=== PATIENT | female | born 1970 | race Caucasian/White ===

== ENCOUNTER 2018-10-08 19:25 | Inpatient (IN) ==
[2018-10-08] MEDS ORDERED: ALUM/MAG/SIMETH/LIDO VISC 1:1 30 ML BOTTLE PO STA (19:46)
[2018-10-08] MEDS ORDERED: NITROGLYCERIN 2% OINT 1 INCH/GM PACK TOP STA (19:46)
[2018-10-08] MEDS ORDERED: ASPIRIN 325 MG TABLET PO STA (19:46)
[2018-10-08] MEDS ORDERED: PANTOPRAZOLE 40 MG VIAL IV STA (19:46)
[2018-10-08] MEDS ORDERED: KETOROLAC 30 MG/1 ML VIAL IV STA (19:46)
[2018-10-08] MEDS ORDERED: ONDANSETRON 4 MG/2 ML VIAL IV STA (19:46)
[2018-10-08] MEDS ORDERED: MORPHINE 4 MG/1 ML VIAL IV STA (19:46)
[2018-10-08 20:03] LABS: Basophils % 0.7 % (0.0-0.8); Eosinophils # 0.2 10*3/uL (0.0-0.87); Eosinophils % 3.9 % (0.00-10.9); Hematocrit 38.2 VOL% (35.7-47.0); Hemoglobin 12.1 GM/DL (12.0-16.0); Immature Granulocytes % 0.3 %; Immature Granulocytes Absolute 0.02 #; Lymphocytes # 2.8 10*3/uL (1.4-4.0); Mean Corpuscular HGB Conc 31.7 GM/DL (32-36); Mean Corpuscular Volume 90.3 FL (87-102); Mean Platelet Volume 9.7 FL (9.6-12.0); Monocytes % 9.2 % (1.7-12.7); Neutrophils % 37.9 % (38.7-73.9); Platelet Count 258 T/CUMM (130-400); Red Blood Count 4.23 MC/CUMM (3.8-5.5); Red Cell Distribution Width 13.6 % (9.3-17.3); White Blood Count 5.9 T/CUMM (4-12)
[2018-10-08 20:14] LABS: INR 0.9; PT Patient Result 9.9 SECS
[2018-10-08 20:19] LABS: Alanine Aminotransferase 39 U/L (13-56); Albumin 3.2 G/DL (3.4-5.0); Alkaline Phosphatase 71 U/L (45-117); Aspartate Amino Transferase 28 U/L (0-37); Bilirubin,Total < 0.39 MG/DL (0.2-1.0); Blood Urea Nitrogen 19 MG/DL (7-18); Calcium 8.1 MG/DL (8.5-10.1); Glucose 126 MG/DL (74-106); Osmolality,Calculated 286.1 MOS/KG (273-304); Total Protein 6.8 G/DL (6.4-8.3)
[2018-10-08 20:28] LABS: Eosinophils 5 % (0-10); Lymphocytes 54 % (20-55); Platelet Estimate Normal; Segmented Neutrophils 38 % (50-85); Total Cells Counted 100
[2018-10-08] MEDS ORDERED: ENOXAPARIN 100 MG/ML SYRINGE SUBCUT STA (22:00)
[2018-10-08] MEDS ORDERED: ENOXAPARIN 120 MG/0.8 ML SYRINGE SUBCUT ONE (22:03)
[2018-10-08] MEDS ORDERED: MAGNESIUM SULF RIDER 2 GM in PREMIX 1 EACH IV PRN (23:27)
[2018-10-08] MEDS ORDERED: MORPHINE 4 MG/1 ML VIAL IV PRN (23:27)
[2018-10-08] MEDS ORDERED: MAGNESIUM SULF RIDER 4 GM in PREMIX 1 EACH IV PRN (23:27)
[2018-10-08] MEDS ORDERED: ONDANSETRON 4 MG/2 ML VIAL IV PRN (23:27)
[2018-10-08] MEDS ORDERED: POTASSIUM CHLORIDE 20 MEQ TABLET PO PRN (23:27)
[2018-10-09] MEDS: NITROGLYCERIN 2% OINT 1 INCH/GM PACK TOP SCH ×3 (00:30→14:42)
[2018-10-09 04:54] LABS: Basophils % 0.7 % (0.0-0.8); Eosinophils # 0.2 10*3/uL (0.0-0.87); Eosinophils % 2.9 % (0.00-10.9); Hematocrit 35.4 VOL% (35.7-47.0); Hemoglobin 11.1 GM/DL (12.0-16.0); Immature Granulocytes % 0.2 %; Immature Granulocytes Absolute 0.01 #; Lymphocytes # 3.4 10*3/uL (1.4-4.0); Lymphocytes % 57.7 % (21.3-54.2); Mean Corpuscular HGB Conc 31.4 GM/DL (32-36); Mean Corpuscular Volume 90.5 FL (87-102); Mean Platelet Volume 10.1 FL (9.6-12.0); Monocytes % 8.5 % (1.7-12.7); Platelet Count 255 T/CUMM (130-400); Red Blood Count 3.91 MC/CUMM (3.8-5.5); Red Cell Distribution Width 13.6 % (9.3-17.3); White Blood Count 5.9 T/CUMM (4-12)
[2018-10-09 05:36] LABS: Band Neutrophils 3 % (0-10); Eosinophils 2 % (0-10); Lymphocytes 53 % (20-55); Segmented Neutrophils 27 % (50-85); Total Cells Counted 100
[2018-10-09 05:37] LABS: Platelet Estimate Normal
[2018-10-09 05:40] LABS: Alanine Aminotransferase 34 U/L (13-56); Albumin 2.9 G/DL (3.4-5.0); Alkaline Phosphatase 63 U/L (45-117); Aspartate Amino Transferase 25 U/L (0-37); Bilirubin,Total < 0.39 MG/DL (0.2-1.0); Blood Urea Nitrogen 18 MG/DL (7-18); Calcium 8.4 MG/DL (8.5-10.1); Glucose 106 MG/DL (74-106); HDL Cholesterol 25 MG/DL (40-60); Osmolality,Calculated 284.1 MOS/KG (273-304); Total Protein 6.1 G/DL (6.4-8.3); Triglycerides 128 MG/DL (2-150); VLDL CHOLESTEROL 25.6 MG/DL
[2018-10-09] MEDS: SODIUM CHLORIDE 0.9% 1,000 ML IV SCH ×2 (06:15→23:30)
[2018-10-09] MEDS ORDERED: Melatonin 1 MG PO PRN (07:22)
[2018-10-09] MEDS ORDERED: ACETAMINOPHEN 325 MG TABLET PO PRN (07:42)
[2018-10-09] MEDS ORDERED: ENOXAPARIN 100 MG/ML SYRINGE SUBCUT ONE (07:52)
[2018-10-09] MEDS ORDERED: tiZANidine 4 MG TABLET PO PRN (08:00)
[2018-10-09] MEDS ORDERED: POTASSIUM CHLORIDE RIDER 10 MEQ in PREMIX 1 EACH IV PRN (08:41)
[2018-10-09] MEDS ORDERED: diphenhydrAMINE CAP 25 MG CAPSULE PO ONE (08:41)
[2018-10-09] MEDS ORDERED: DIAZEPAM 5 MG TABLET PO ONE (08:41)
[2018-10-09] MEDS: METOPROLOL TARTRATE 25 MG TABLET PO SCH ×2 (08:48→08:53)
[2018-10-09] MEDS: ESCITALOPRAM 10 MG TABLET PO SCH (08:48)
[2018-10-09] MEDS: ASPIRIN 325 MG TABLET PO SCH (08:49)
[2018-10-09] MEDS: LYSINE 500 MG TABLET PO SCH (08:49)
[2018-10-09] MEDS: CHOLECALCIFEROL 1,000 UNIT TABLET PO SCH (08:49)
[2018-10-09] MEDS ORDERED: NON-FORMULARY MEDICATION (Omeprazole 20 MG) PO SCH (09:00)
[2018-10-09] MEDS ORDERED: PANTOPRAZOLE 40 MG TABLET PO SCH (09:00)
[2018-10-09] MEDS ORDERED: SODIUM CHLORIDE 0.9% 1,000 ML IV SCH (09:00)
[2018-10-09] MEDS ORDERED: ENOXAPARIN 120 MG/0.8 ML SYRINGE SUBCUT SCH (09:00)
[2018-10-09] MEDS ORDERED: LIDOCAINE 1% 20 ML VIAL ONE (14:03)
[2018-10-09] MEDS ORDERED: MIDAZOLAM 2 MG/2 ML VIAL ONE (14:06)
[2018-10-09] MEDS ORDERED: fentaNYL 100 MCG/2 ML VIAL ONE (14:06)
[2018-10-09] MEDS: GABAPENTIN 100 MG CAPSULE PO SCH ×2 (16:02→21:38)
[2018-10-09] MEDS: ACETAMINOPHEN 325 MG TABLET PO SCH ×2 (16:02→21:37)
[2018-10-09] MEDS: FUROSEMIDE 20 MG TABLET PO SCH (16:02)
[2018-10-09] MEDS ORDERED: DOCUSATE SODIUM 100 MG/10 ML UDCUP PO SCH (21:00)
[2018-10-09] MEDS ORDERED: ROSUVASTATIN 10 MG TABLET PO SCH (21:00)
[2018-10-09] MEDS: PANTOPRAZOLE 40 MG TABLET PO SCH (21:38)
[2018-10-09] MEDS: HYOSCYAMINE 0.125 MG TABLET SL SCH ×2 (21:38→21:42)
[2018-10-10 06:24] LABS: Basophils # 0.1 10*3/uL (0.0-0.2); Eosinophils # 0.1 10*3/uL (0.0-0.87); Eosinophils % 1.3 % (0.00-10.9); Hematocrit 37.2 VOL% (35.7-47.0); Hemoglobin 11.5 GM/DL (12.0-16.0); Immature Granulocytes % 0.2 %; Immature Granulocytes Absolute 0.01 #; Lymphocytes # 2.6 10*3/uL (1.4-4.0); Lymphocytes % 48.9 % (21.3-54.2); Mean Corpuscular HGB Conc 30.9 GM/DL (32-36); Mean Corpuscular Volume 91.9 FL (87-102); Mean Platelet Volume 9.9 FL (9.6-12.0); Neutrophils % 39.6 % (38.7-73.9); Platelet Count 233 T/CUMM (130-400); Red Blood Count 4.05 MC/CUMM (3.8-5.5); Red Cell Distribution Width 13.8 % (9.3-17.3); White Blood Count 5.2 T/CUMM (4-12)
[2018-10-10 06:57] LABS: Calcium 8.4 MG/DL (8.5-10.1); Osmolality,Calculated 289.7 MOS/KG (273-304)
[2018-10-10 08:06] VITALS: BP 112/73
[2018-10-10] MEDS: LYSINE 500 MG TABLET PO SCH (08:51)
[2018-10-10] MEDS: ASPIRIN 325 MG TABLET PO SCH (08:51)
[2018-10-10] MEDS: PANTOPRAZOLE 40 MG TABLET PO SCH (08:51)
[2018-10-10] MEDS: CHOLECALCIFEROL 1,000 UNIT TABLET PO SCH (08:52)
[2018-10-10] MEDS: METOPROLOL TARTRATE 25 MG TABLET PO SCH (08:52)
[2018-10-10] MEDS: GABAPENTIN 100 MG CAPSULE PO SCH (08:52)
[2018-10-10] MEDS: ESCITALOPRAM 10 MG TABLET PO SCH (08:52)
[2018-10-10] MEDS: FUROSEMIDE 20 MG TABLET PO SCH (08:52)
[2018-10-10] MEDS: ACETAMINOPHEN 325 MG TABLET PO SCH (08:53)
[2018-10-10] MEDS: HYOSCYAMINE 0.125 MG TABLET SL SCH (09:18)
== END 2018-10-10 11:27 | disposition home or self-care (01) | DRG 287 ==
LOC: N.ED 19:25 → N.EDINP 22:06 → N.TELEN 22:52
PROVIDERS: ADMIT Internal Medicine Cardiovascular Disease; ATTEND Internal Medicine Cardiovascular Disease
PROC: CLCCHCL (ICD-10-PCS; 2018-10-09 14:15)

== ENCOUNTER 2020-01-21 04:08 | Inpatient (IN) ==
[2020-01-21] MEDS ORDERED: PANTOPRAZOLE 40 MG VIAL IV STA (04:40)
[2020-01-21] MEDS ORDERED: ONDANSETRON 4 MG/2 ML VIAL IV STA (04:40)
[2020-01-21] MEDS ORDERED: ACETAMINOPHEN 500 MG TABLET PO STA (04:40)
[2020-01-21] MEDS ORDERED: SODIUM CHLORIDE 0.9% 1,000 ML IV STA (04:40)
[2020-01-21 05:04] LABS: Hematocrit 36.9 VOL% (35.7-47.0); Immature Granulocytes % 0.9 %; Immature Granulocytes Absolute 0.02 #; Lymphocytes # 0.7 10*3/uL (1.4-4.0); Lymphocytes % 32.7 % (21.3-54.2); Mean Corpuscular HGB Conc 32.5 GM/DL (32-36); Mean Corpuscular Volume 84.6 FL (87-102); Mean Platelet Volume 9.6 FL (9.6-12.0); Monocytes % 6.6 % (1.7-12.7); Neutrophils % 59.8 % (38.7-73.9); Platelet Count 152 T/CUMM (130-400); Red Blood Count 4.36 MC/CUMM (3.8-5.5); Red Cell Distribution Width 14.6 % (9.3-17.3); White Blood Count 2.1 T/CUMM (4-12)
[2020-01-21 05:40] LABS: Alanine Aminotransferase 59 U/L (13-56); Albumin 2.8 G/DL (3.4-5.0); Alkaline Phosphatase 75 U/L (45-117); Amylase 28 U/L (25-115); Aspartate Amino Transferase 69 U/L (0-37); Bilirubin,Total < 0.39 MG/DL (0.2-1.0); Blood Urea Nitrogen 7 MG/DL (7-18); Calcium 7.8 MG/DL (8.5-10.1); Estimated Glom Filtration Rate 117 ML/MIN; Glucose 213 MG/DL (74-106); Osmolality,Calculated 276.8 MOS/KG (273-304); Total Protein 6.5 G/DL (6.4-8.3)
[2020-01-21] MEDS ORDERED: MAGNESIUM SULF RIDER 2 GM in PREMIX 1 EACH IV STA (05:43)
[2020-01-21 06:37] LABS: Bilirubin,Urine Negative (Negative); Blood, Urine Negative (Negative); Glucose,Urine (UA) 150 mg/dL (Negative); Ketones,Urine 20 mg/dL (Negative); Nitrite,Urine Negative (Negative); Protein,Urine Negative; RBC,Urine 2 /HPF (0-4); Squamous Epithelial Cell,Urine Occasional /HPF (0-10); Urine Appearance CLEAR (Clear); Urine Color Yellow (Yellow); Urine Specific Gravity 1.045 (1.001-1.035); Urine Urobilinogen < 2.0 EU/DL (0.2-1.0); WBC,Urine 2 /HPF (0-6)
[2020-01-21] MEDS ORDERED: GLUCAGON 1 MG VIAL IM PRN (07:31)
[2020-01-21] MEDS ORDERED: DEXTROSE 50% 25 GM/50 ML VIAL IV PRN (07:31)
[2020-01-21 07:36] LABS: Band Neutrophils 1 % (0-10); Lymphocytes 30 % (20-55); Ovalocytes Slight; Platelet Estimate Adequate; Segmented Neutrophils 66 % (50-85); Total Cells Counted 100
[2020-01-21 08:19] LABS: HDL Cholesterol 23 MG/DL (40-60); Risk Ratio 2.17; Thyroid Stimulating Hormone 0.605 uIU/ml (0.358-3.74); Triglycerides 63 MG/DL (2-150); VLDL CHOLESTEROL 12.6 MG/DL
[2020-01-21] MEDS: cefTRIAXone 1,000 MG in SYRINGE 1 EACH IV SCH (10:02)
[2020-01-21] MEDS: ENOXAPARIN 40 MG/0.4 ML SYRINGE SUBCUT SCH (10:03)
[2020-01-21] MEDS ORDERED: tiZANidine 4 MG TABLET PO PRN (10:32)
[2020-01-21] MEDS ORDERED: ALBUTEROL INHALER 18 GM INH PRN (10:32)
[2020-01-21] MEDS ORDERED: NICOTINE 14 MG/24 HR PATCH TRANSDERM PRN (10:51)
[2020-01-21] MEDS: AZITHROMYCIN INJ 500 MG in SODIUM CHLORIDE 0.9% 250 ML IV SCH (11:20)
[2020-01-21] MEDS: ONDANSETRON 4 MG/2 ML VIAL IV PRN (11:32)
[2020-01-21] MEDS: ACETAMINOPHEN 325 MG TABLET PO PRN (11:42)
[2020-01-21] MEDS: CHOLECALCIFEROL 1,000 UNIT TABLET PO SCH (12:15)
[2020-01-21] MEDS: ASCORBIC ACID 500 MG TABLET PO SCH ×2 (12:15→20:18)
[2020-01-21] MEDS: DEXAMETHASONE 4 MG TABLET PO SCH ×2 (12:15→20:18)
[2020-01-21] MEDS: ZINC SULFATE 220 MG CAPSULE PO SCH (12:16)
[2020-01-21] MEDS ORDERED: HYDROmorphone 2 MG/1 ML VIAL IV ONE (12:40)
[2020-01-21] MEDS ORDERED: PNEUMOCOCCAL VACCINE (23 VALENT) 0.5 ML VIAL IM ONE (12:42)
[2020-01-21] MEDS: ALBUTEROL INHALER 18 GM INH SCH ×2 (13:34→17:59)
[2020-01-21] MEDS: GABAPENTIN 100 MG CAPSULE PO SCH ×2 (15:56→20:18)
[2020-01-21] MEDS: PANTOPRAZOLE 40 MG TABLET PO SCH ×2 (17:59→20:18)
[2020-01-21] MEDS: METOPROLOL TARTRATE 25 MG TABLET PO SCH (20:17)
[2020-01-21] MEDS: ROSUVASTATIN 10 MG TABLET PO SCH (20:17)
[2020-01-22] MEDS: ALBUTEROL INHALER 18 GM INH SCH ×4 (00:45→20:58)
[2020-01-22 06:18] LABS: Hematocrit 38.1 VOL% (35.7-47.0); Immature Granulocytes % 0.6 %; Immature Granulocytes Absolute 0.01 #; Lymphocytes # 0.7 10*3/uL (1.4-4.0); Lymphocytes % 38.2 % (21.3-54.2); Mean Corpuscular HGB Conc 31.5 GM/DL (32-36); Mean Corpuscular Volume 87.4 FL (87-102); Mean Platelet Volume 9.8 FL (9.6-12.0); Monocytes % 6.2 % (1.7-12.7); Platelet Count 171 T/CUMM (130-400); Red Blood Count 4.36 MC/CUMM (3.8-5.5); Red Cell Distribution Width 14.8 % (9.3-17.3); White Blood Count 1.8 T/CUMM (4-12)
[2020-01-22 06:37] LABS: Alanine Aminotransferase 56 U/L (13-56); Albumin 2.6 G/DL (3.4-5.0); Alkaline Phosphatase 68 U/L (45-117); Aspartate Amino Transferase 60 U/L (0-37); Bilirubin,Total < 0.39 MG/DL (0.2-1.0); Blood Urea Nitrogen 9 MG/DL (7-18); Calcium 8.6 MG/DL (8.5-10.1); Estimated Glom Filtration Rate 116 ML/MIN; Glucose 212 MG/DL (74-106); Osmolality,Calculated 277.8 MOS/KG (273-304)
[2020-01-22 07:20] LABS: Atypical Lymphocytes Few; Band Neutrophils 12 % (0-10); Lymphocytes 33 % (20-55); Platelet Estimate Normal; Segmented Neutrophils 47 % (50-85); Total Cells Counted 100
[2020-01-22] MEDS: cefTRIAXone 1,000 MG in SYRINGE 1 EACH IV SCH (09:33)
[2020-01-22] MEDS: ASCORBIC ACID 500 MG TABLET PO SCH ×2 (09:34→20:58)
[2020-01-22] MEDS: ESCITALOPRAM 10 MG TABLET PO SCH (09:34)
[2020-01-22] MEDS: GABAPENTIN 100 MG CAPSULE PO SCH ×3 (09:34→20:58)
[2020-01-22] MEDS: CHOLECALCIFEROL 1,000 UNIT TABLET PO SCH (09:34)
[2020-01-22] MEDS: MELOXICAM 7.5 MG TABLET PO SCH (09:34)
[2020-01-22] MEDS: PANTOPRAZOLE 40 MG TABLET PO SCH ×2 (09:34→20:58)
[2020-01-22] MEDS: ASPIRIN EC 81 MG TABLET PO SCH (09:34)
[2020-01-22] MEDS: FUROSEMIDE 20 MG TABLET PO SCH (09:34)
[2020-01-22] MEDS: METOPROLOL TARTRATE 25 MG TABLET PO SCH ×2 (09:34→23:02)
[2020-01-22] MEDS: DEXAMETHASONE 4 MG TABLET PO SCH ×2 (09:35→20:58)
[2020-01-22] MEDS: ZINC SULFATE 220 MG CAPSULE PO SCH (09:35)
[2020-01-22] MEDS: AZITHROMYCIN INJ 500 MG in SODIUM CHLORIDE 0.9% 250 ML IV SCH (09:35)
[2020-01-22] MEDS: ENOXAPARIN 40 MG/0.4 ML SYRINGE SUBCUT SCH (09:35)
[2020-01-22] MEDS ORDERED: REMDESIVIR 200 MG in SODIUM CHLORIDE 0.9% 210 ML IV ONE (11:00)
[2020-01-22] MEDS ORDERED: IPRATROPIUM/ALBUTEROL INHALER INH SCH (13:00)
[2020-01-22] MEDS ORDERED: SODIUM CHLORIDE 0.9% 1,000 ML IV PRN (13:10)
[2020-01-22] MEDS: ROSUVASTATIN 10 MG TABLET PO SCH (20:58)
[2020-01-22] MEDS: ACETAMINOPHEN 325 MG TABLET PO PRN (20:58)
[2020-01-22] MEDS: guaiFENesin/DM ER 600-30 MG TABLET PO PRN (20:58)
[2020-01-23] MEDS: ALBUTEROL INHALER 18 GM INH SCH ×4 (02:24→20:15)
[2020-01-23 06:18] LABS: Basophils % 0.3 % (0.0-0.8); Hematocrit 38.2 VOL% (35.7-47.0); Hemoglobin 11.9 GM/DL (12.0-16.0); Immature Granulocytes % 0.8 %; Immature Granulocytes Absolute 0.03 #; Lymphocytes # 0.8 10*3/uL (1.4-4.0); Lymphocytes % 21.9 % (21.3-54.2); Mean Corpuscular HGB Conc 31.2 GM/DL (32-36); Mean Corpuscular Volume 86.6 FL (87-102); Mean Platelet Volume 10.4 FL (9.6-12.0); Monocytes % 4.9 % (1.7-12.7); Neutrophils % 72.1 % (38.7-73.9); Platelet Count 210 T/CUMM (130-400); Red Blood Count 4.41 MC/CUMM (3.8-5.5); Red Cell Distribution Width 14.9 % (9.3-17.3); White Blood Count 3.7 T/CUMM (4-12)
[2020-01-23 06:37] LABS: Calcium 8.3 MG/DL (8.5-10.1); Osmolality,Calculated 288.3 MOS/KG (273-304)
[2020-01-23 06:40] LABS: Ferritin 85.2 ng/ml (8-252)
[2020-01-23 07:03] LABS: Lymphocytes 15 % (20-55); Nucleated Red Blood Cells 4 (0-5); Platelet Estimate Normal; Segmented Neutrophils 80 % (50-85); Total Cells Counted 100
[2020-01-23] MEDS: ENOXAPARIN 40 MG/0.4 ML SYRINGE SUBCUT SCH (07:53)
[2020-01-23] MEDS: cefTRIAXone 1,000 MG in SYRINGE 1 EACH IV SCH (07:53)
[2020-01-23] MEDS: AZITHROMYCIN INJ 500 MG in SODIUM CHLORIDE 0.9% 250 ML IV SCH (07:54)
[2020-01-23] MEDS: CHOLECALCIFEROL 1,000 UNIT TABLET PO SCH (07:59)
[2020-01-23] MEDS: ASPIRIN EC 81 MG TABLET PO SCH (07:59)
[2020-01-23] MEDS: guaiFENesin/DM ER 600-30 MG TABLET PO PRN (07:59)
[2020-01-23] MEDS: GABAPENTIN 100 MG CAPSULE PO SCH ×3 (07:59→21:40)
[2020-01-23] MEDS: ESCITALOPRAM 10 MG TABLET PO SCH (07:59)
[2020-01-23] MEDS: ZINC SULFATE 220 MG CAPSULE PO SCH (07:59)
[2020-01-23] MEDS: DEXAMETHASONE 4 MG TABLET PO SCH ×2 (08:00→21:38)
[2020-01-23] MEDS: METOPROLOL TARTRATE 25 MG TABLET PO SCH ×3 (08:00→20:32)
[2020-01-23] MEDS: FUROSEMIDE 20 MG TABLET PO SCH (08:00)
[2020-01-23] MEDS: ASCORBIC ACID 500 MG TABLET PO SCH ×2 (08:00→21:39)
[2020-01-23] MEDS: PANTOPRAZOLE 40 MG TABLET PO SCH ×2 (08:00→21:39)
[2020-01-23] MEDS: ACETAMINOPHEN 325 MG TABLET PO PRN (08:00)
[2020-01-23] MEDS: MELOXICAM 7.5 MG TABLET PO SCH (08:01)
[2020-01-23] MEDS: REMDESIVIR 100 MG in SODIUM CHLORIDE 0.9% 230 ML IV SCH (09:33)
[2020-01-23] MEDS: ROSUVASTATIN 10 MG TABLET PO SCH (21:38)
[2020-01-23] MEDS: MELATONIN 3 MG TABLET PO PRN (21:39)
[2020-01-24] MEDS: ALBUTEROL INHALER 18 GM INH SCH ×4 (00:27→18:01)
[2020-01-24 06:06] LABS: Hemoglobin 11.5 GM/DL (12.0-16.0); Immature Granulocytes % 1.1 %; Immature Granulocytes Absolute 0.05 #; Lymphocytes # 0.8 10*3/uL (1.4-4.0); Lymphocytes % 17.8 % (21.3-54.2); Mean Corpuscular HGB Conc 31.1 GM/DL (32-36); Mean Corpuscular Volume 87.5 FL (87-102); Mean Platelet Volume 10.1 FL (9.6-12.0); Monocytes % 5.5 % (1.7-12.7); Neutrophils % 75.6 % (38.7-73.9); Platelet Count 230 T/CUMM (130-400); Red Blood Count 4.23 MC/CUMM (3.8-5.5); White Blood Count 4.4 T/CUMM (4-12)
[2020-01-24 06:40] LABS: Calcium 8.5 MG/DL (8.5-10.1); Osmolality,Calculated 286.5 MOS/KG (273-304)
[2020-01-24 06:43] LABS: Ferritin 67.5 ng/ml (8-252)
[2020-01-24 06:48] LABS: Hypochromasia 1+
[2020-01-24 06:49] LABS: Microcytosis 1+; Ovalocytes Slight; Platelet Estimate Normal
[2020-01-24] MEDS: METOPROLOL TARTRATE 25 MG TABLET PO SCH ×2 (09:07→20:01)
[2020-01-24] MEDS: GABAPENTIN 100 MG CAPSULE PO SCH ×3 (09:07→21:21)
[2020-01-24] MEDS: ENOXAPARIN 40 MG/0.4 ML SYRINGE SUBCUT SCH (09:07)
[2020-01-24] MEDS: CHOLECALCIFEROL 1,000 UNIT TABLET PO SCH (09:07)
[2020-01-24] MEDS: ASCORBIC ACID 500 MG TABLET PO SCH ×2 (09:07→21:22)
[2020-01-24] MEDS: MELOXICAM 7.5 MG TABLET PO SCH (09:07)
[2020-01-24] MEDS: ASPIRIN EC 81 MG TABLET PO SCH (09:07)
[2020-01-24] MEDS: PANTOPRAZOLE 40 MG TABLET PO SCH ×2 (09:08→21:21)
[2020-01-24] MEDS: DEXAMETHASONE 4 MG TABLET PO SCH (09:08)
[2020-01-24] MEDS: ZINC SULFATE 220 MG CAPSULE PO SCH (09:08)
[2020-01-24] MEDS: FUROSEMIDE 20 MG TABLET PO SCH (09:08)
[2020-01-24] MEDS: ESCITALOPRAM 10 MG TABLET PO SCH (09:08)
[2020-01-24] MEDS: REMDESIVIR 100 MG in SODIUM CHLORIDE 0.9% 230 ML IV SCH (09:26)
[2020-01-24 15:20] LABS: ABG Base Excess 2.9 MMOL/L (-2.5-2.5); ABG HCO3 26.8 MMOL/L (20-26); ABG Oxygen Saturation 87.8 % (95-100); ABG PCO2 35.5 MM HG (35-48); ABG PH 7.477 (7.35-7.45); ABG PO2 54.3 MM HG (80-95); ABG TCO2 23.2 MMOL/L (23-27)
[2020-01-24] MEDS: guaiFENesin/DM ER 600-30 MG TABLET PO PRN (15:25)
[2020-01-24] MEDS ORDERED: BENZONATATE 100 MG CAPSULE PO SCH (15:30)
[2020-01-24] MEDS: DEXAMETHASONE 10 MG/1 ML VIAL IV SCH (16:15)
[2020-01-24] MEDS: cefTRIAXone 2,000 MG in SYRINGE 1 EACH IV SCH (16:21)
[2020-01-24] MEDS: AZITHROMYCIN 250 MG TABLET PO SCH (16:21)
[2020-01-24] MEDS: ROSUVASTATIN 10 MG TABLET PO SCH (21:21)
[2020-01-24] MEDS: ACETAMINOPHEN 325 MG TABLET PO PRN (21:22)
[2020-01-24] MEDS: MELATONIN 3 MG TABLET PO PRN (21:22)
[2020-01-25] MEDS: ALBUTEROL INHALER 18 GM INH SCH ×4 (01:25→19:30)
[2020-01-25 03:24] LABS: ABG Base Excess 1.3 MMOL/L (-2.5-2.5); ABG HCO3 24.9 MMOL/L (20-26); ABG Oxygen Saturation 91.7 % (95-100); ABG PCO2 36.2 MM HG (35-48); ABG PH 7.456 (7.35-7.45); ABG PO2 63.9 MM HG (80-95); Allen Test Positive
[2020-01-25 06:18] LABS: Hematocrit 37.1 VOL% (35.7-47.0); Hemoglobin 11.7 GM/DL (12.0-16.0); Immature Granulocytes % 1.4 %; Immature Granulocytes Absolute 0.07 #; Lymphocytes # 0.8 10*3/uL (1.4-4.0); Mean Corpuscular HGB Conc 31.5 GM/DL (32-36); Mean Corpuscular Volume 87.3 FL (87-102); Mean Platelet Volume 10.1 FL (9.6-12.0); Monocytes % 4.9 % (1.7-12.7); Neutrophils % 76.7 % (38.7-73.9); Platelet Count 253 T/CUMM (130-400); Red Blood Count 4.25 MC/CUMM (3.8-5.5); Red Cell Distribution Width 14.8 % (9.3-17.3); White Blood Count 4.9 T/CUMM (4-12)
[2020-01-25 06:35] LABS: Calcium 8.6 MG/DL (8.5-10.1); Osmolality,Calculated 288.5 MOS/KG (273-304)
[2020-01-25 06:41] LABS: Hypochromasia 1+; Lymphocytes 18 % (20-55); Microcytosis 1+; Segmented Neutrophils 78 % (50-85); Total Cells Counted 100
[2020-01-25 06:42] LABS: Platelet Estimate Normal
[2020-01-25 06:45] LABS: Ferritin 52.4 ng/ml (8-252)
[2020-01-25] MEDS: ESCITALOPRAM 10 MG TABLET PO SCH (10:23)
[2020-01-25] MEDS: CHOLECALCIFEROL 1,000 UNIT TABLET PO SCH (10:23)
[2020-01-25] MEDS: ZINC SULFATE 220 MG CAPSULE PO SCH (10:24)
[2020-01-25] MEDS: GABAPENTIN 100 MG CAPSULE PO SCH ×3 (10:24→20:50)
[2020-01-25] MEDS: AZITHROMYCIN 250 MG TABLET PO SCH (10:24)
[2020-01-25] MEDS: PANTOPRAZOLE 40 MG TABLET PO SCH ×2 (10:25→20:51)
[2020-01-25] MEDS: ASCORBIC ACID 500 MG TABLET PO SCH ×2 (10:25→20:50)
[2020-01-25] MEDS: DEXAMETHASONE 10 MG/1 ML VIAL IV SCH (10:26)
[2020-01-25] MEDS: FUROSEMIDE 20 MG TABLET PO SCH (10:26)
[2020-01-25] MEDS: METOPROLOL TARTRATE 25 MG TABLET PO SCH ×3 (10:26→21:16)
[2020-01-25] MEDS: ASPIRIN EC 81 MG TABLET PO SCH (10:26)
[2020-01-25] MEDS: cefTRIAXone 2,000 MG in SYRINGE 1 EACH IV SCH (10:27)
[2020-01-25] MEDS: ENOXAPARIN 40 MG/0.4 ML SYRINGE SUBCUT SCH (10:27)
[2020-01-25] MEDS: REMDESIVIR 100 MG in SODIUM CHLORIDE 0.9% 230 ML IV SCH (11:30)
[2020-01-25] MEDS ORDERED: FUROSEMIDE 40 MG/4 ML VIAL IV ONE (16:19)
[2020-01-25] MEDS: guaiFENesin/DM ER 600-30 MG TABLET PO PRN (20:50)
[2020-01-25] MEDS: MELATONIN 3 MG TABLET PO PRN (20:50)
[2020-01-25] MEDS: ROSUVASTATIN 10 MG TABLET PO SCH (20:50)
[2020-01-25] MEDS: ACETAMINOPHEN 325 MG TABLET PO PRN (20:51)
[2020-01-26] MEDS: ALBUTEROL INHALER 18 GM INH SCH ×4 (02:10→19:20)
[2020-01-26 06:31] LABS: Basophils % 0.1 % (0.0-0.8); Hematocrit 38.8 VOL% (35.7-47.0); Hemoglobin 12.7 GM/DL (12.0-16.0); Immature Granulocytes Absolute 0.07 #; Lymphocytes # 1.4 10*3/uL (1.4-4.0); Lymphocytes % 20.2 % (21.3-54.2); Mean Corpuscular HGB Conc 32.7 GM/DL (32-36); Mean Corpuscular Volume 85.1 FL (87-102); Mean Platelet Volume 10.6 FL (9.6-12.0); Monocytes % 3.9 % (1.7-12.7); Neutrophils % 74.8 % (38.7-73.9); Platelet Count 288 T/CUMM (130-400); Red Blood Count 4.56 MC/CUMM (3.8-5.5); Red Cell Distribution Width 14.8 % (9.3-17.3); White Blood Count 6.7 T/CUMM (4-12)
[2020-01-26 06:46] LABS: Calcium 8.6 MG/DL (8.5-10.1); Osmolality,Calculated 283.8 MOS/KG (273-304)
[2020-01-26] MEDS: cefTRIAXone 2,000 MG in SYRINGE 1 EACH IV SCH (09:25)
[2020-01-26] MEDS: AZITHROMYCIN 250 MG TABLET PO SCH (09:26)
[2020-01-26] MEDS: ENOXAPARIN 40 MG/0.4 ML SYRINGE SUBCUT SCH (09:26)
[2020-01-26] MEDS: ASPIRIN EC 81 MG TABLET PO SCH (09:26)
[2020-01-26] MEDS: GABAPENTIN 100 MG CAPSULE PO SCH ×3 (09:26→21:28)
[2020-01-26] MEDS: ONDANSETRON 4 MG/2 ML VIAL IV PRN (09:27)
[2020-01-26] MEDS: ASCORBIC ACID 500 MG TABLET PO SCH ×2 (09:27→21:30)
[2020-01-26] MEDS: PANTOPRAZOLE 40 MG TABLET PO SCH ×2 (09:27→21:29)
[2020-01-26] MEDS: ESCITALOPRAM 10 MG TABLET PO SCH (09:27)
[2020-01-26] MEDS: FUROSEMIDE 20 MG TABLET PO SCH (09:27)
[2020-01-26] MEDS: ZINC SULFATE 220 MG CAPSULE PO SCH (09:27)
[2020-01-26] MEDS: DEXAMETHASONE 10 MG/1 ML VIAL IV SCH (09:28)
[2020-01-26] MEDS: REMDESIVIR 100 MG in SODIUM CHLORIDE 0.9% 230 ML IV SCH (09:29)
[2020-01-26] MEDS: METOPROLOL TARTRATE 25 MG TABLET PO SCH ×3 (09:48→21:28)
[2020-01-26] MEDS: CHOLECALCIFEROL 1,000 UNIT TABLET PO SCH (14:22)
[2020-01-26] MEDS: POLYETHYLENE GLYCOL POWDER 17 GM PACK PO PRN (14:23)
[2020-01-26] MEDS: ROSUVASTATIN 10 MG TABLET PO SCH (21:27)
[2020-01-26] MEDS: MELATONIN 3 MG TABLET PO PRN (21:34)
[2020-01-26] MEDS: guaiFENesin/DM ER 600-30 MG TABLET PO PRN (21:34)
[2020-01-27] MEDS: ALBUTEROL INHALER 18 GM INH SCH ×5 (01:20→18:00)
[2020-01-27] MEDS: MAGNESIUM HYDROXIDE SUSP 30 ML UDCUP PO PRN (04:26)
[2020-01-27 06:41] LABS: Calcium 8.6 MG/DL (8.5-10.1); Osmolality,Calculated 274.4 MOS/KG (273-304)
[2020-01-27 06:42] LABS: Basophils % 0.2 % (0.0-0.8); Hematocrit 36.2 VOL% (35.7-47.0); Hemoglobin 11.7 GM/DL (12.0-16.0); Immature Granulocytes % 1.3 %; Immature Granulocytes Absolute 0.08 #; Lymphocytes # 1.3 10*3/uL (1.4-4.0); Lymphocytes % 21.3 % (21.3-54.2); Mean Corpuscular HGB Conc 32.3 GM/DL (32-36); Mean Platelet Volume 10.6 FL (9.6-12.0); Monocytes % 2.9 % (1.7-12.7); NRBC # 0.02 10*3/uL; Neutrophils % 74.3 % (38.7-73.9); Platelet Count 276 T/CUMM (130-400); Red Blood Count 4.26 MC/CUMM (3.8-5.5); Red Cell Distribution Width 14.9 % (9.3-17.3); White Blood Count 6.1 T/CUMM (4-12)
[2020-01-27] MEDS: cefTRIAXone 2,000 MG in SYRINGE 1 EACH IV SCH (08:12)
[2020-01-27] MEDS: ONDANSETRON 4 MG/2 ML VIAL IV PRN (08:12)
[2020-01-27] MEDS: DEXAMETHASONE 10 MG/1 ML VIAL IV SCH (08:13)
[2020-01-27] MEDS: ENOXAPARIN 40 MG/0.4 ML SYRINGE SUBCUT SCH (08:15)
[2020-01-27] MEDS: AZITHROMYCIN 250 MG TABLET PO SCH (08:15)
[2020-01-27] MEDS: POLYETHYLENE GLYCOL POWDER 17 GM PACK PO PRN (08:15)
[2020-01-27] MEDS: ZINC SULFATE 220 MG CAPSULE PO SCH (08:15)
[2020-01-27] MEDS: ASPIRIN EC 81 MG TABLET PO SCH (08:16)
[2020-01-27] MEDS: CHOLECALCIFEROL 1,000 UNIT TABLET PO SCH (08:16)
[2020-01-27] MEDS: ACETAMINOPHEN 325 MG TABLET PO PRN ×2 (08:16→21:41)
[2020-01-27] MEDS: FUROSEMIDE 20 MG TABLET PO SCH (08:16)
[2020-01-27] MEDS: METOPROLOL TARTRATE 25 MG TABLET PO SCH ×2 (08:17→21:11)
[2020-01-27] MEDS: PANTOPRAZOLE 40 MG TABLET PO SCH ×2 (08:17→21:40)
[2020-01-27] MEDS: ASCORBIC ACID 500 MG TABLET PO SCH ×2 (08:17→21:40)
[2020-01-27] MEDS: ESCITALOPRAM 10 MG TABLET PO SCH (08:17)
[2020-01-27] MEDS: GABAPENTIN 100 MG CAPSULE PO SCH ×3 (08:18→21:40)
[2020-01-27] MEDS: guaiFENesin/DM ER 600-30 MG TABLET PO PRN (08:24)
[2020-01-27] MEDS: BENZONATATE 100 MG CAPSULE PO PRN ×2 (11:41→21:41)
[2020-01-27] MEDS: LACTULOSE 20 GM/30 ML UDCUP PO PRN (11:43)
[2020-01-27] MEDS ORDERED: FLUCONAZOLE 150 MG TABLET PO ONE (12:00)
[2020-01-27] MEDS: ROSUVASTATIN 10 MG TABLET PO SCH (21:40)
[2020-01-27] MEDS: MELATONIN 3 MG TABLET PO PRN (21:41)
[2020-01-28] MEDS: ALBUTEROL INHALER 18 GM INH SCH ×4 (00:49→18:27)
[2020-01-28 06:30] LABS: Basophils % 0.1 % (0.0-0.8); Hematocrit 36.2 VOL% (35.7-47.0); Hemoglobin 11.7 GM/DL (12.0-16.0); Immature Granulocytes % 1.2 %; Immature Granulocytes Absolute 0.08 #; Lymphocytes # 0.7 10*3/uL (1.4-4.0); Lymphocytes % 9.9 % (21.3-54.2); Mean Corpuscular HGB Conc 32.3 GM/DL (32-36); Mean Corpuscular Volume 85.8 FL (87-102); Mean Platelet Volume 10.3 FL (9.6-12.0); Monocytes % 3.3 % (1.7-12.7); Neutrophils % 85.5 % (38.7-73.9); Platelet Count 293 T/CUMM (130-400); Red Blood Count 4.22 MC/CUMM (3.8-5.5); Red Cell Distribution Width 14.6 % (9.3-17.3); White Blood Count 6.9 T/CUMM (4-12)
[2020-01-28 06:44] LABS: Calcium 8.7 MG/DL (8.5-10.1); Osmolality,Calculated 279.8 MOS/KG (273-304)
[2020-01-28] MEDS: DEXAMETHASONE 10 MG/1 ML VIAL IV SCH (08:28)
[2020-01-28] MEDS: BISACODYL 5 MG TABLET PO PRN (08:29)
[2020-01-28] MEDS: ZINC SULFATE 220 MG CAPSULE PO SCH (08:29)
[2020-01-28] MEDS: AZITHROMYCIN 250 MG TABLET PO SCH (08:29)
[2020-01-28] MEDS: ENOXAPARIN 40 MG/0.4 ML SYRINGE SUBCUT SCH ×2 (08:29→20:25)
[2020-01-28] MEDS: METOPROLOL TARTRATE 25 MG TABLET PO SCH ×2 (08:29→20:27)
[2020-01-28] MEDS: ESCITALOPRAM 10 MG TABLET PO SCH (08:30)
[2020-01-28] MEDS: ASPIRIN EC 81 MG TABLET PO SCH (08:30)
[2020-01-28] MEDS: BENZONATATE 100 MG CAPSULE PO PRN ×2 (08:30→20:26)
[2020-01-28] MEDS: FUROSEMIDE 20 MG TABLET PO SCH (08:30)
[2020-01-28] MEDS: PANTOPRAZOLE 40 MG TABLET PO SCH ×2 (08:30→20:25)
[2020-01-28] MEDS: cefTRIAXone 2,000 MG in SYRINGE 1 EACH IV SCH (08:30)
[2020-01-28] MEDS: ASCORBIC ACID 500 MG TABLET PO SCH ×2 (08:30→20:26)
[2020-01-28] MEDS: GABAPENTIN 100 MG CAPSULE PO SCH ×3 (08:30→20:25)
[2020-01-28] MEDS: CHOLECALCIFEROL 1,000 UNIT TABLET PO SCH (08:30)
[2020-01-28] MEDS: SODIUM PHOSPHATE ENEMA 133 ML BOTTLE RECTAL PRN (16:26)
[2020-01-28] MEDS: MELATONIN 3 MG TABLET PO PRN (18:27)
[2020-01-28] MEDS: ROSUVASTATIN 10 MG TABLET PO SCH (20:25)
[2020-01-28] MEDS: ZALEPLON 5 MG CAPSULE PO PRN (20:26)
[2020-01-28] MEDS: ACETAMINOPHEN 325 MG TABLET PO PRN (20:27)
[2020-01-29] MEDS: ALBUTEROL INHALER 18 GM INH SCH ×4 (00:10→21:40)
[2020-01-29 05:59] LABS: Hematocrit 36.1 VOL% (35.7-47.0); Hemoglobin 11.7 GM/DL (12.0-16.0); Immature Granulocytes % 0.9 %; Immature Granulocytes Absolute 0.05 #; Lymphocytes # 0.7 10*3/uL (1.4-4.0); Lymphocytes % 12.4 % (21.3-54.2); Mean Corpuscular HGB Conc 32.4 GM/DL (32-36); Mean Corpuscular Volume 85.1 FL (87-102); Mean Platelet Volume 10.3 FL (9.6-12.0); Monocytes % 2.4 % (1.7-12.7); Neutrophils % 84.3 % (38.7-73.9); Platelet Count 311 T/CUMM (130-400); Red Blood Count 4.24 MC/CUMM (3.8-5.5); White Blood Count 5.9 T/CUMM (4-12)
[2020-01-29 06:20] LABS: Calcium 8.9 MG/DL (8.5-10.1); Osmolality,Calculated 275.2 MOS/KG (273-304)
[2020-01-29] MEDS: ZINC SULFATE 220 MG CAPSULE PO SCH (10:13)
[2020-01-29] MEDS: ENOXAPARIN 40 MG/0.4 ML SYRINGE SUBCUT SCH ×2 (10:13→21:41)
[2020-01-29] MEDS: guaiFENesin/CODEINE 5 ML LIQUID PO PRN ×3 (10:13→21:43)
[2020-01-29] MEDS: PANTOPRAZOLE 40 MG TABLET PO SCH ×2 (10:14→21:41)
[2020-01-29] MEDS: ASPIRIN EC 81 MG TABLET PO SCH (10:14)
[2020-01-29] MEDS: BISACODYL 5 MG TABLET PO PRN (10:14)
[2020-01-29] MEDS: CHOLECALCIFEROL 1,000 UNIT TABLET PO SCH (10:14)
[2020-01-29] MEDS: ESCITALOPRAM 10 MG TABLET PO SCH (10:14)
[2020-01-29] MEDS: DEXAMETHASONE 10 MG/1 ML VIAL IV SCH (10:15)
[2020-01-29] MEDS: FUROSEMIDE 20 MG TABLET PO SCH ×2 (10:15→10:50)
[2020-01-29] MEDS: ASCORBIC ACID 500 MG TABLET PO SCH ×2 (10:15→21:40)
[2020-01-29] MEDS: GABAPENTIN 100 MG CAPSULE PO SCH ×3 (10:15→21:40)
[2020-01-29] MEDS: cefTRIAXone 2,000 MG in SYRINGE 1 EACH IV SCH (10:16)
[2020-01-29] MEDS: METOPROLOL TARTRATE 25 MG TABLET PO SCH ×2 (10:46→21:41)
[2020-01-29] MEDS: BENZONATATE 100 MG CAPSULE PO PRN (12:28)
[2020-01-29] MEDS: ACETAMINOPHEN 325 MG TABLET PO PRN ×2 (15:47→21:40)
[2020-01-29] MEDS: MELATONIN 3 MG TABLET PO PRN (18:57)
[2020-01-29] MEDS: ROSUVASTATIN 10 MG TABLET PO SCH (21:40)
[2020-01-29] MEDS: ZALEPLON 5 MG CAPSULE PO PRN (21:40)
[2020-01-30] MEDS: ALBUTEROL INHALER 18 GM INH SCH ×4 (02:04→21:04)
[2020-01-30] MEDS: guaiFENesin/CODEINE 5 ML LIQUID PO PRN ×2 (03:38→10:43)
[2020-01-30 05:11] LABS: Calcium 9.1 MG/DL (8.5-10.1); Osmolality,Calculated 274.4 MOS/KG (273-304)
[2020-01-30 05:13] LABS: Eosinophils % 0.4 % (0.00-10.9); Hematocrit 37.3 VOL% (35.7-47.0); Immature Granulocytes % 1.3 %; Immature Granulocytes Absolute 0.07 #; Lymphocytes # 0.7 10*3/uL (1.4-4.0); Lymphocytes % 13.2 % (21.3-54.2); Mean Corpuscular HGB Conc 32.2 GM/DL (32-36); Mean Corpuscular Volume 85.9 FL (87-102); Mean Platelet Volume 10.6 FL (9.6-12.0); Monocytes % 2.5 % (1.7-12.7); Neutrophils % 82.6 % (38.7-73.9); Platelet Count 329 T/CUMM (130-400); Red Blood Count 4.34 MC/CUMM (3.8-5.5); Red Cell Distribution Width 15.1 % (9.3-17.3); White Blood Count 5.5 T/CUMM (4-12)
[2020-01-30] MEDS: ENOXAPARIN 40 MG/0.4 ML SYRINGE SUBCUT SCH ×2 (09:29→21:04)
[2020-01-30] MEDS: cefTRIAXone 2,000 MG in SYRINGE 1 EACH IV SCH (09:30)
[2020-01-30] MEDS: LACTULOSE 20 GM/30 ML UDCUP PO PRN (09:31)
[2020-01-30] MEDS: POLYETHYLENE GLYCOL POWDER 17 GM PACK PO PRN (09:31)
[2020-01-30] MEDS: ASPIRIN EC 81 MG TABLET PO SCH (09:32)
[2020-01-30] MEDS: GABAPENTIN 100 MG CAPSULE PO SCH ×3 (09:46→21:04)
[2020-01-30] MEDS: ASCORBIC ACID 500 MG TABLET PO SCH ×2 (09:46→21:05)
[2020-01-30] MEDS: ESCITALOPRAM 10 MG TABLET PO SCH (09:46)
[2020-01-30] MEDS: PANTOPRAZOLE 40 MG TABLET PO SCH ×2 (09:46→21:05)
[2020-01-30] MEDS: BISACODYL 5 MG TABLET PO PRN (09:46)
[2020-01-30] MEDS: ZINC SULFATE 220 MG CAPSULE PO SCH (09:46)
[2020-01-30] MEDS: METOPROLOL TARTRATE 25 MG TABLET PO SCH ×3 (09:47→21:06)
[2020-01-30] MEDS: FUROSEMIDE 20 MG TABLET PO SCH (09:48)
[2020-01-30] MEDS ORDERED: MAGNESIUM CITRATE 300 ML BOTTLE PO ONE (11:01)
[2020-01-30] MEDS: CHOLECALCIFEROL 1,000 UNIT TABLET PO SCH (11:38)
[2020-01-30] MEDS: DEXAMETHASONE 10 MG/1 ML VIAL IV SCH (11:39)
[2020-01-30] MEDS: ACETAMINOPHEN 325 MG TABLET PO PRN ×3 (11:39→21:05)
[2020-01-30] MEDS: SODIUM PHOSPHATE ENEMA 133 ML BOTTLE RECTAL PRN (11:40)
[2020-01-30] MEDS: BENZONATATE 100 MG CAPSULE PO PRN ×2 (15:42→21:04)
[2020-01-30] MEDS: ROSUVASTATIN 10 MG TABLET PO SCH (21:05)
[2020-01-30] MEDS: ZALEPLON 5 MG CAPSULE PO PRN (21:06)
[2020-01-30] MEDS: MELATONIN 3 MG TABLET PO PRN (21:38)
[2020-01-31] MEDS: ALBUTEROL INHALER 18 GM INH SCH ×4 (00:21→20:34)
[2020-01-31] MEDS: guaiFENesin/CODEINE 5 ML LIQUID PO PRN ×3 (04:50→21:04)
[2020-01-31] MEDS: ACETAMINOPHEN 325 MG TABLET PO PRN ×4 (06:09→22:00)
[2020-01-31 07:11] LABS: Basophils % 0.2 % (0.0-0.8); Hematocrit 36.4 VOL% (35.7-47.0); Hemoglobin 11.8 GM/DL (12.0-16.0); Immature Granulocytes % 1.3 %; Immature Granulocytes Absolute 0.08 #; Lymphocytes # 0.7 10*3/uL (1.4-4.0); Lymphocytes % 10.6 % (21.3-54.2); Mean Corpuscular HGB Conc 32.4 GM/DL (32-36); Mean Platelet Volume 10.6 FL (9.6-12.0); Monocytes % 2.1 % (1.7-12.7); Neutrophils % 85.8 % (38.7-73.9); Platelet Count 292 T/CUMM (130-400); Red Blood Count 4.28 MC/CUMM (3.8-5.5); Red Cell Distribution Width 15.3 % (9.3-17.3); White Blood Count 6.2 T/CUMM (4-12)
[2020-01-31 07:27] LABS: Calcium 8.6 MG/DL (8.5-10.1); Osmolality,Calculated 271.2 MOS/KG (273-304)
[2020-01-31] MEDS: BENZONATATE 100 MG CAPSULE PO PRN ×2 (08:00→21:04)
[2020-01-31] MEDS: cefTRIAXone 2,000 MG in SYRINGE 1 EACH IV SCH (10:14)
[2020-01-31] MEDS: DEXAMETHASONE 10 MG/1 ML VIAL IV SCH (10:15)
[2020-01-31] MEDS: CHOLECALCIFEROL 1,000 UNIT TABLET PO SCH (10:16)
[2020-01-31] MEDS: FUROSEMIDE 20 MG TABLET PO SCH (10:16)
[2020-01-31] MEDS: PANTOPRAZOLE 40 MG TABLET PO SCH ×2 (10:16→20:35)
[2020-01-31] MEDS: ZINC SULFATE 220 MG CAPSULE PO SCH (10:16)
[2020-01-31] MEDS: ESCITALOPRAM 10 MG TABLET PO SCH (10:16)
[2020-01-31] MEDS: GABAPENTIN 100 MG CAPSULE PO SCH ×3 (10:16→20:35)
[2020-01-31] MEDS: ENOXAPARIN 40 MG/0.4 ML SYRINGE SUBCUT SCH ×2 (10:17→20:34)
[2020-01-31] MEDS: METOPROLOL TARTRATE 25 MG TABLET PO SCH ×2 (10:18→21:04)
[2020-01-31] MEDS: POLYETHYLENE GLYCOL POWDER 17 GM PACK PO SCH (10:18)
[2020-01-31] MEDS: ASCORBIC ACID 500 MG TABLET PO SCH ×2 (12:26→20:35)
[2020-01-31] MEDS: ASPIRIN EC 81 MG TABLET PO SCH (12:26)
[2020-01-31] MEDS: ROSUVASTATIN 10 MG TABLET PO SCH ×2 (20:34→21:05)
[2020-01-31] MEDS: ZALEPLON 5 MG CAPSULE PO PRN (21:04)
[2020-01-31] MEDS: MELATONIN 3 MG TABLET PO PRN (21:05)
[2020-02-01] MEDS: ALBUTEROL INHALER 18 GM INH SCH ×4 (01:54→21:20)
[2020-02-01] MEDS: guaiFENesin/CODEINE 5 ML LIQUID PO PRN ×3 (04:00→21:22)
[2020-02-01 05:55] LABS: Basophils % 0.2 % (0.0-0.8); Hematocrit 36.2 VOL% (35.7-47.0); Hemoglobin 11.5 GM/DL (12.0-16.0); Immature Granulocytes % 1.4 %; Immature Granulocytes Absolute 0.07 #; Lymphocytes # 0.6 10*3/uL (1.4-4.0); Lymphocytes % 11.2 % (21.3-54.2); Mean Corpuscular HGB Conc 31.8 GM/DL (32-36); Mean Corpuscular Volume 85.2 FL (87-102); Neutrophils % 85.2 % (38.7-73.9); Platelet Count 274 T/CUMM (130-400); Red Blood Count 4.25 MC/CUMM (3.8-5.5); Red Cell Distribution Width 15.1 % (9.3-17.3); White Blood Count 5.1 T/CUMM (4-12)
[2020-02-01 06:10] LABS: Calcium 8.7 MG/DL (8.5-10.1); Osmolality,Calculated 274.1 MOS/KG (273-304)
[2020-02-01] MEDS: ESCITALOPRAM 10 MG TABLET PO SCH (09:07)
[2020-02-01] MEDS: PANTOPRAZOLE 40 MG TABLET PO SCH ×2 (09:07→21:21)
[2020-02-01] MEDS: METOPROLOL TARTRATE 25 MG TABLET PO SCH ×2 (09:08→21:21)
[2020-02-01] MEDS: CHOLECALCIFEROL 1,000 UNIT TABLET PO SCH (09:08)
[2020-02-01] MEDS: ASCORBIC ACID 500 MG TABLET PO SCH ×2 (09:08→21:21)
[2020-02-01] MEDS: ASPIRIN EC 81 MG TABLET PO SCH (09:08)
[2020-02-01] MEDS: ZINC SULFATE 220 MG CAPSULE PO SCH (09:08)
[2020-02-01] MEDS: FUROSEMIDE 20 MG TABLET PO SCH (09:08)
[2020-02-01] MEDS: GABAPENTIN 100 MG CAPSULE PO SCH ×3 (09:08→21:21)
[2020-02-01] MEDS: BENZONATATE 100 MG CAPSULE PO PRN ×2 (09:08→21:21)
[2020-02-01] MEDS: DEXAMETHASONE 10 MG/1 ML VIAL IV SCH (09:09)
[2020-02-01] MEDS: POLYETHYLENE GLYCOL POWDER 17 GM PACK PO SCH (09:09)
[2020-02-01] MEDS: ENOXAPARIN 40 MG/0.4 ML SYRINGE SUBCUT SCH ×2 (09:09→21:20)
[2020-02-01] MEDS ORDERED: MAGNESIUM CITRATE 300 ML BOTTLE PO ONE (09:17)
[2020-02-01] MEDS: guaiFENesin/DM ER 600-30 MG TABLET PO PRN ×2 (12:27→21:22)
[2020-02-01] MEDS: ACETAMINOPHEN 325 MG TABLET PO PRN (21:20)
[2020-02-01] MEDS: ROSUVASTATIN 10 MG TABLET PO SCH (21:20)
[2020-02-01] MEDS: ZALEPLON 5 MG CAPSULE PO PRN (21:21)
[2020-02-01] MEDS: MELATONIN 3 MG TABLET PO PRN (21:21)
[2020-02-02] MEDS: ALBUTEROL INHALER 18 GM INH SCH ×4 (02:08→20:35)
[2020-02-02] MEDS: guaiFENesin/CODEINE 5 ML LIQUID PO PRN ×2 (06:53→17:18)
[2020-02-02] MEDS: FUROSEMIDE 20 MG TABLET PO SCH (09:47)
[2020-02-02] MEDS: ACETAMINOPHEN 325 MG TABLET PO PRN ×2 (09:47→20:34)
[2020-02-02] MEDS: ASCORBIC ACID 500 MG TABLET PO SCH ×2 (09:47→20:35)
[2020-02-02] MEDS: GABAPENTIN 100 MG CAPSULE PO SCH ×3 (09:47→20:34)
[2020-02-02] MEDS: ZINC SULFATE 220 MG CAPSULE PO SCH (09:47)
[2020-02-02] MEDS: ASPIRIN EC 81 MG TABLET PO SCH (09:47)
[2020-02-02] MEDS: ENOXAPARIN 40 MG/0.4 ML SYRINGE SUBCUT SCH ×2 (09:47→20:34)
[2020-02-02] MEDS: guaiFENesin/DM ER 600-30 MG TABLET PO PRN ×2 (09:47→20:43)
[2020-02-02] MEDS: POLYETHYLENE GLYCOL POWDER 17 GM PACK PO SCH (09:47)
[2020-02-02] MEDS: ESCITALOPRAM 10 MG TABLET PO SCH (09:47)
[2020-02-02] MEDS: CHOLECALCIFEROL 1,000 UNIT TABLET PO SCH (09:47)
[2020-02-02] MEDS: PANTOPRAZOLE 40 MG TABLET PO SCH ×2 (09:47→20:34)
[2020-02-02] MEDS: BENZONATATE 100 MG CAPSULE PO PRN ×2 (09:47→20:35)
[2020-02-02] MEDS: DEXAMETHASONE 10 MG/1 ML VIAL IV SCH (09:47)
[2020-02-02] MEDS: METOPROLOL TARTRATE 25 MG TABLET PO SCH ×3 (10:38→20:52)
[2020-02-02] MEDS: ROSUVASTATIN 10 MG TABLET PO SCH ×2 (20:34→20:52)
[2020-02-02] MEDS: ZALEPLON 5 MG CAPSULE PO PRN (21:41)
[2020-02-02] MEDS: MELATONIN 3 MG TABLET PO PRN (21:41)
[2020-02-03] MEDS: ALBUTEROL INHALER 18 GM INH SCH ×4 (00:52→18:13)
[2020-02-03 06:07] LABS: Hematocrit 35.5 VOL% (35.7-47.0); Hemoglobin 11.3 GM/DL (12.0-16.0); Immature Granulocytes % 0.9 %; Immature Granulocytes Absolute 0.05 #; Mean Corpuscular HGB Conc 31.8 GM/DL (32-36); Mean Corpuscular Volume 86.4 FL (87-102); Mean Platelet Volume 10.2 FL (9.6-12.0); Monocytes % 3.7 % (1.7-12.7); Neutrophils % 78.4 % (38.7-73.9); Platelet Count 300 T/CUMM (130-400); Red Blood Count 4.11 MC/CUMM (3.8-5.5); Red Cell Distribution Width 15.2 % (9.3-17.3); White Blood Count 5.6 T/CUMM (4-12)
[2020-02-03 06:14] LABS: Calcium 9.1 MG/DL (8.5-10.1); Osmolality,Calculated 274.2 MOS/KG (273-304)
[2020-02-03] MEDS: BENZONATATE 100 MG CAPSULE PO PRN ×3 (07:30→20:09)
[2020-02-03] MEDS: guaiFENesin/CODEINE 5 ML LIQUID PO PRN ×3 (07:30→20:08)
[2020-02-03] MEDS: guaiFENesin/DM ER 600-30 MG TABLET PO PRN ×3 (07:30→20:08)
[2020-02-03] MEDS: POLYETHYLENE GLYCOL POWDER 17 GM PACK PO SCH (09:35)
[2020-02-03] MEDS: CHOLECALCIFEROL 1,000 UNIT TABLET PO SCH (09:35)
[2020-02-03] MEDS: ENOXAPARIN 40 MG/0.4 ML SYRINGE SUBCUT SCH ×2 (09:35→20:09)
[2020-02-03] MEDS: FUROSEMIDE 20 MG TABLET PO SCH (09:35)
[2020-02-03] MEDS: ASCORBIC ACID 500 MG TABLET PO SCH ×2 (09:35→20:08)
[2020-02-03] MEDS: DEXAMETHASONE 10 MG/1 ML VIAL IV SCH (09:35)
[2020-02-03] MEDS: ESCITALOPRAM 10 MG TABLET PO SCH (09:35)
[2020-02-03] MEDS: GABAPENTIN 100 MG CAPSULE PO SCH ×3 (09:35→20:08)
[2020-02-03] MEDS: ASPIRIN EC 81 MG TABLET PO SCH (09:35)
[2020-02-03] MEDS: ZINC SULFATE 220 MG CAPSULE PO SCH (09:35)
[2020-02-03] MEDS: PANTOPRAZOLE 40 MG TABLET PO SCH ×2 (09:35→20:09)
[2020-02-03] MEDS: METOPROLOL TARTRATE 25 MG TABLET PO SCH ×2 (10:14→20:36)
[2020-02-03] MEDS ORDERED: ACETYLCYSTEINE 20% 800 MG/4 ML VIAL RESP TX SCH (13:00)
[2020-02-03] MEDS: BISACODYL 5 MG TABLET PO PRN (13:15)
[2020-02-03] MEDS ORDERED: FUROSEMIDE 40 MG/4 ML VIAL IV ONE (15:34)
[2020-02-03] MEDS: ACETAMINOPHEN 325 MG TABLET PO PRN (20:06)
[2020-02-03] MEDS: ZALEPLON 5 MG CAPSULE PO PRN (20:08)
[2020-02-03] MEDS: MELATONIN 3 MG TABLET PO PRN (20:09)
[2020-02-03] MEDS: MAGNESIUM HYDROXIDE SUSP 30 ML UDCUP PO PRN (20:35)
[2020-02-03] MEDS: ROSUVASTATIN 10 MG TABLET PO SCH (20:36)
[2020-02-04] MEDS: ALBUTEROL INHALER 18 GM INH SCH ×4 (00:05→18:32)
[2020-02-04 05:59] LABS: Basophils % 0.2 % (0.0-0.8); Hematocrit 34.7 VOL% (35.7-47.0); Hemoglobin 11.3 GM/DL (12.0-16.0); Immature Granulocytes % 1.3 %; Immature Granulocytes Absolute 0.07 #; Lymphocytes # 0.9 10*3/uL (1.4-4.0); Mean Corpuscular HGB Conc 32.6 GM/DL (32-36); Mean Platelet Volume 10.4 FL (9.6-12.0); Monocytes % 3.6 % (1.7-12.7); Neutrophils % 78.9 % (38.7-73.9); Platelet Count 272 T/CUMM (130-400); Red Blood Count 4.08 MC/CUMM (3.8-5.5); Red Cell Distribution Width 14.9 % (9.3-17.3); White Blood Count 5.6 T/CUMM (4-12)
[2020-02-04 06:30] LABS: Calcium 8.6 MG/DL (8.5-10.1); Osmolality,Calculated 276.4 MOS/KG (273-304)
[2020-02-04] MEDS: FUROSEMIDE 20 MG TABLET PO SCH (08:25)
[2020-02-04] MEDS: PANTOPRAZOLE 40 MG TABLET PO SCH ×2 (08:25→20:44)
[2020-02-04] MEDS: DEXAMETHASONE 10 MG/1 ML VIAL IV SCH (08:25)
[2020-02-04] MEDS: guaiFENesin/DM ER 600-30 MG TABLET PO PRN ×2 (08:25→18:25)
[2020-02-04] MEDS: METOPROLOL TARTRATE 25 MG TABLET PO SCH ×2 (08:25→21:14)
[2020-02-04] MEDS: ENOXAPARIN 40 MG/0.4 ML SYRINGE SUBCUT SCH ×2 (08:25→20:45)
[2020-02-04] MEDS: GABAPENTIN 100 MG CAPSULE PO SCH ×3 (08:25→20:45)
[2020-02-04] MEDS: ASPIRIN EC 81 MG TABLET PO SCH (08:25)
[2020-02-04] MEDS: ZINC SULFATE 220 MG CAPSULE PO SCH (08:25)
[2020-02-04] MEDS: POLYETHYLENE GLYCOL POWDER 17 GM PACK PO SCH (08:25)
[2020-02-04] MEDS: ASCORBIC ACID 500 MG TABLET PO SCH ×2 (08:25→20:45)
[2020-02-04] MEDS: CHOLECALCIFEROL 1,000 UNIT TABLET PO SCH (08:25)
[2020-02-04] MEDS: BENZONATATE 100 MG CAPSULE PO PRN ×3 (08:30→20:44)
[2020-02-04] MEDS: ESCITALOPRAM 10 MG TABLET PO SCH (10:30)
[2020-02-04] MEDS ORDERED: MAGNESIUM CITRATE 300 ML BOTTLE PO PRN (13:26)
[2020-02-04] MEDS: guaiFENesin/CODEINE 5 ML LIQUID PO PRN ×2 (15:30→20:44)
[2020-02-04] MEDS: ROSUVASTATIN 10 MG TABLET PO SCH (20:44)
[2020-02-04] MEDS: BISACODYL 5 MG TABLET PO PRN (20:44)
[2020-02-04] MEDS: MELATONIN 3 MG TABLET PO PRN (20:45)
[2020-02-04] MEDS: ACETAMINOPHEN 325 MG TABLET PO PRN (20:45)
[2020-02-04] MEDS: ZALEPLON 5 MG CAPSULE PO PRN (20:45)
[2020-02-04] MEDS ORDERED: FUROSEMIDE 40 MG/4 ML VIAL IV ONE ×2 (21:51→22:00)
[2020-02-05] MEDS: ALBUTEROL INHALER 18 GM INH SCH ×4 (00:40→21:11)
[2020-02-05 05:30] LABS: Basophils % 0.1 % (0.0-0.8); Hematocrit 36.7 VOL% (35.7-47.0); Hemoglobin 11.8 GM/DL (12.0-16.0); Immature Granulocytes % 1.2 %; Immature Granulocytes Absolute 0.09 #; Lymphocytes # 1.1 10*3/uL (1.4-4.0); Lymphocytes % 14.9 % (21.3-54.2); Mean Corpuscular HGB Conc 32.2 GM/DL (32-36); Mean Corpuscular Volume 85.3 FL (87-102); Mean Platelet Volume 10.5 FL (9.6-12.0); Neutrophils % 80.8 % (38.7-73.9); Platelet Count 271 T/CUMM (130-400); Red Cell Distribution Width 15.1 % (9.3-17.3); White Blood Count 7.3 T/CUMM (4-12)
[2020-02-05] MEDS: BENZONATATE 100 MG CAPSULE PO PRN ×2 (06:17→21:13)
[2020-02-05] MEDS: guaiFENesin/CODEINE 5 ML LIQUID PO PRN ×3 (06:17→21:50)
[2020-02-05] MEDS: ACETAMINOPHEN 325 MG TABLET PO PRN (06:17)
[2020-02-05 07:10] LABS: Calcium 8.8 MG/DL (8.5-10.1); Osmolality,Calculated 280.4 MOS/KG (273-304)
[2020-02-05] MEDS ORDERED: GLUCAGON 1 MG VIAL IM PRN ×2 (07:19→07:20)
[2020-02-05] MEDS ORDERED: DEXTROSE 50% 25 GM/50 ML VIAL IV PRN ×2 (07:19→07:20)
[2020-02-05] MEDS: INSULIN LISPRO 100 UNIT/ML SUBCUT SCH ×4 (08:43→21:12)
[2020-02-05] MEDS: POLYETHYLENE GLYCOL POWDER 17 GM PACK PO SCH (08:43)
[2020-02-05] MEDS: ENOXAPARIN 40 MG/0.4 ML SYRINGE SUBCUT SCH ×2 (08:43→21:11)
[2020-02-05] MEDS: DEXAMETHASONE 10 MG/1 ML VIAL IV SCH (08:43)
[2020-02-05] MEDS: GABAPENTIN 100 MG CAPSULE PO SCH ×3 (08:44→21:12)
[2020-02-05] MEDS: FUROSEMIDE 20 MG TABLET PO SCH (08:44)
[2020-02-05] MEDS: ZINC SULFATE 220 MG CAPSULE PO SCH (08:44)
[2020-02-05] MEDS: ESCITALOPRAM 10 MG TABLET PO SCH (08:44)
[2020-02-05] MEDS: ASCORBIC ACID 500 MG TABLET PO SCH ×2 (08:44→21:13)
[2020-02-05] MEDS: PANTOPRAZOLE 40 MG TABLET PO SCH ×2 (08:44→21:12)
[2020-02-05] MEDS: METOPROLOL TARTRATE 25 MG TABLET PO SCH ×2 (08:45→22:21)
[2020-02-05] MEDS: CHOLECALCIFEROL 1,000 UNIT TABLET PO SCH (08:45)
[2020-02-05] MEDS: BISACODYL 5 MG TABLET PO PRN (08:45)
[2020-02-05] MEDS: ASPIRIN EC 81 MG TABLET PO SCH (08:51)
[2020-02-05] MEDS: guaiFENesin/DM ER 600-30 MG TABLET PO PRN ×2 (09:45→21:13)
[2020-02-05] MEDS: SPIRONOLACTONE 25 MG TABLET PO SCH (13:27)
[2020-02-05] MEDS: MELATONIN 3 MG TABLET PO PRN (21:13)
[2020-02-05] MEDS: ZALEPLON 5 MG CAPSULE PO PRN (21:13)
[2020-02-05] MEDS: ROSUVASTATIN 10 MG TABLET PO SCH (22:20)
[2020-02-06] MEDS: ALBUTEROL INHALER 18 GM INH SCH ×4 (01:57→18:30)
[2020-02-06] MEDS: guaiFENesin/CODEINE 5 ML LIQUID PO PRN ×3 (04:31→21:34)
[2020-02-06 05:41] LABS: Basophils % 0.1 % (0.0-0.8); Hematocrit 35.5 VOL% (35.7-47.0); Hemoglobin 11.3 GM/DL (12.0-16.0); Immature Granulocytes % 1.5 %; Immature Granulocytes Absolute 0.11 #; Lymphocytes # 1.1 10*3/uL (1.4-4.0); Lymphocytes % 14.2 % (21.3-54.2); Mean Corpuscular HGB Conc 31.8 GM/DL (32-36); Mean Corpuscular Volume 86.2 FL (87-102); Mean Platelet Volume 10.1 FL (9.6-12.0); Monocytes % 3.5 % (1.7-12.7); Neutrophils % 80.7 % (38.7-73.9); Platelet Count 267 T/CUMM (130-400); Red Blood Count 4.12 MC/CUMM (3.8-5.5); Red Cell Distribution Width 15.1 % (9.3-17.3); White Blood Count 7.5 T/CUMM (4-12)
[2020-02-06 06:19] LABS: Calcium 8.8 MG/DL (8.5-10.1); Osmolality,Calculated 276.2 MOS/KG (273-304)
[2020-02-06] MEDS: INSULIN LISPRO 100 UNIT/ML SUBCUT SCH ×3 (09:10→16:40)
[2020-02-06] MEDS: ESCITALOPRAM 10 MG TABLET PO SCH (09:10)
[2020-02-06] MEDS: POLYETHYLENE GLYCOL POWDER 17 GM PACK PO SCH (09:10)
[2020-02-06] MEDS: ENOXAPARIN 40 MG/0.4 ML SYRINGE SUBCUT SCH ×2 (09:10→21:18)
[2020-02-06] MEDS: METOPROLOL TARTRATE 25 MG TABLET PO SCH ×2 (09:11→21:17)
[2020-02-06] MEDS: PANTOPRAZOLE 40 MG TABLET PO SCH ×2 (09:11→21:17)
[2020-02-06] MEDS: SPIRONOLACTONE 25 MG TABLET PO SCH (09:11)
[2020-02-06] MEDS: ZINC SULFATE 220 MG CAPSULE PO SCH (09:11)
[2020-02-06] MEDS: DEXAMETHASONE 10 MG/1 ML VIAL IV SCH (09:11)
[2020-02-06] MEDS: ASPIRIN EC 81 MG TABLET PO SCH (09:11)
[2020-02-06] MEDS: FUROSEMIDE 20 MG TABLET PO SCH (09:11)
[2020-02-06] MEDS: CHOLECALCIFEROL 1,000 UNIT TABLET PO SCH (09:12)
[2020-02-06] MEDS: ASCORBIC ACID 500 MG TABLET PO SCH ×2 (09:12→21:17)
[2020-02-06] MEDS: GABAPENTIN 100 MG CAPSULE PO SCH ×3 (09:12→21:17)
[2020-02-06] MEDS: BISACODYL 5 MG TABLET PO PRN (09:58)
[2020-02-06] MEDS: guaiFENesin/DM ER 600-30 MG TABLET PO PRN ×2 (09:59→21:34)
[2020-02-06] MEDS: BENZONATATE 100 MG CAPSULE PO PRN ×2 (09:59→18:33)
[2020-02-06] MEDS ORDERED: GLUCAGON 1 MG VIAL IM PRN ×2 (16:42→18:16)
[2020-02-06] MEDS ORDERED: DEXTROSE 50% 25 GM/50 ML VIAL IV PRN ×2 (16:42→18:16)
[2020-02-06] MEDS ORDERED: INSULIN GLARGINE 100 UNIT/ML SUBCUT SCH ×2 (21:00)
[2020-02-06] MEDS: ROSUVASTATIN 10 MG TABLET PO SCH ×2 (21:17→21:35)
[2020-02-06] MEDS: INSULIN GLARGINE 100 UNIT/ML SUBCUT SCH (21:18)
[2020-02-06] MEDS: INSULIN REGULAR 100 UNIT/ML SUBCUT SCH (21:18)
[2020-02-06] MEDS: ZALEPLON 5 MG CAPSULE PO PRN (21:34)
[2020-02-06] MEDS: MELATONIN 3 MG TABLET PO PRN (21:34)
[2020-02-07] MEDS: ALBUTEROL INHALER 18 GM INH SCH ×4 (00:54→18:55)
[2020-02-07] MEDS: BENZONATATE 100 MG CAPSULE PO PRN ×3 (00:54→22:01)
[2020-02-07 06:31] LABS: Basophils % 0.2 % (0.0-0.8); Eosinophils % 0.1 % (0.00-10.9); Hematocrit 35.5 VOL% (35.7-47.0); Hemoglobin 11.5 GM/DL (12.0-16.0); Immature Granulocytes % 1.7 %; Immature Granulocytes Absolute 0.15 #; Lymphocytes % 11.8 % (21.3-54.2); Mean Corpuscular HGB Conc 32.4 GM/DL (32-36); Mean Corpuscular Volume 85.3 FL (87-102); Mean Platelet Volume 10.5 FL (9.6-12.0); Monocytes % 2.9 % (1.7-12.7); Neutrophils % 83.3 % (38.7-73.9); Platelet Count 273 T/CUMM (130-400); Red Blood Count 4.16 MC/CUMM (3.8-5.5); Red Cell Distribution Width 15.2 % (9.3-17.3); White Blood Count 8.6 T/CUMM (4-12)
[2020-02-07 06:57] LABS: Calcium 8.8 MG/DL (8.5-10.1); Osmolality,Calculated 274.1 MOS/KG (273-304)
[2020-02-07] MEDS: POLYETHYLENE GLYCOL POWDER 17 GM PACK PO SCH (09:07)
[2020-02-07] MEDS: ENOXAPARIN 40 MG/0.4 ML SYRINGE SUBCUT SCH ×2 (09:07→21:48)
[2020-02-07] MEDS: DEXAMETHASONE 10 MG/1 ML VIAL IV SCH (09:07)
[2020-02-07] MEDS: INSULIN GLARGINE 100 UNIT/ML SUBCUT SCH ×2 (09:08→21:48)
[2020-02-07] MEDS: INSULIN REGULAR 100 UNIT/ML SUBCUT SCH ×4 (09:08→21:48)
[2020-02-07] MEDS: guaiFENesin/DM ER 600-30 MG TABLET PO PRN ×2 (09:09→21:47)
[2020-02-07] MEDS: FUROSEMIDE 20 MG TABLET PO SCH (09:09)
[2020-02-07] MEDS: ESCITALOPRAM 10 MG TABLET PO SCH (09:09)
[2020-02-07] MEDS: ASPIRIN EC 81 MG TABLET PO SCH (09:09)
[2020-02-07] MEDS: BISACODYL 5 MG TABLET PO PRN (09:09)
[2020-02-07] MEDS: GABAPENTIN 100 MG CAPSULE PO SCH ×3 (09:09→21:47)
[2020-02-07] MEDS: PANTOPRAZOLE 40 MG TABLET PO SCH ×2 (09:09→21:47)
[2020-02-07] MEDS: SPIRONOLACTONE 25 MG TABLET PO SCH (09:09)
[2020-02-07] MEDS: CHOLECALCIFEROL 1,000 UNIT TABLET PO SCH (09:10)
[2020-02-07] MEDS: ASCORBIC ACID 500 MG TABLET PO SCH ×2 (09:10→21:47)
[2020-02-07] MEDS: METOPROLOL TARTRATE 25 MG TABLET PO SCH ×2 (09:10→21:50)
[2020-02-07] MEDS: ZINC SULFATE 220 MG CAPSULE PO SCH (09:10)
[2020-02-07] MEDS: guaiFENesin/CODEINE 5 ML LIQUID PO PRN (17:41)
[2020-02-07] MEDS: ZALEPLON 5 MG CAPSULE PO PRN (21:47)
[2020-02-07] MEDS: ROSUVASTATIN 10 MG TABLET PO SCH (21:47)
[2020-02-07] MEDS: MELATONIN 3 MG TABLET PO PRN (21:47)
[2020-02-08] MEDS: guaiFENesin/CODEINE 5 ML LIQUID PO PRN ×3 (00:06→21:19)
[2020-02-08] MEDS: ALBUTEROL INHALER 18 GM INH SCH ×4 (00:32→19:01)
[2020-02-08 05:59] LABS: Basophils % 0.4 % (0.0-0.8); Hematocrit 38.9 VOL% (35.7-47.0); Hemoglobin 12.8 GM/DL (12.0-16.0); Immature Granulocytes % 2.3 %; Immature Granulocytes Absolute 0.25 #; Lymphocytes # 1.7 10*3/uL (1.4-4.0); Lymphocytes % 16.2 % (21.3-54.2); Mean Corpuscular HGB Conc 32.9 GM/DL (32-36); Mean Corpuscular Volume 86.6 FL (87-102); Mean Platelet Volume 10.2 FL (9.6-12.0); Monocytes % 3.6 % (1.7-12.7); Neutrophils % 77.5 % (38.7-73.9); Platelet Count 342 T/CUMM (130-400); Red Blood Count 4.49 MC/CUMM (3.8-5.5); Red Cell Distribution Width 15.1 % (9.3-17.3); White Blood Count 10.8 T/CUMM (4-12)
[2020-02-08 06:11] LABS: Calcium 9.6 MG/DL (8.5-10.1); Osmolality,Calculated 273.2 MOS/KG (273-304)
[2020-02-08 06:16] LABS: Ferritin 128.9 ng/ml (8-252)
[2020-02-08] MEDS: INSULIN REGULAR 100 UNIT/ML SUBCUT SCH ×4 (10:24→21:19)
[2020-02-08] MEDS: SPIRONOLACTONE 25 MG TABLET PO SCH (10:25)
[2020-02-08] MEDS: ASPIRIN EC 81 MG TABLET PO SCH (10:25)
[2020-02-08] MEDS: ENOXAPARIN 40 MG/0.4 ML SYRINGE SUBCUT SCH ×2 (10:25→21:19)
[2020-02-08] MEDS: DEXAMETHASONE 10 MG/1 ML VIAL IV SCH (10:25)
[2020-02-08] MEDS: FUROSEMIDE 20 MG TABLET PO SCH (10:26)
[2020-02-08] MEDS: INSULIN GLARGINE 100 UNIT/ML SUBCUT SCH ×2 (10:26→21:19)
[2020-02-08] MEDS: POLYETHYLENE GLYCOL POWDER 17 GM PACK PO SCH (10:26)
[2020-02-08] MEDS: ESCITALOPRAM 10 MG TABLET PO SCH (10:26)
[2020-02-08] MEDS: GABAPENTIN 100 MG CAPSULE PO SCH ×3 (10:26→21:19)
[2020-02-08] MEDS: METOPROLOL TARTRATE 25 MG TABLET PO SCH ×2 (10:26→21:19)
[2020-02-08] MEDS: PANTOPRAZOLE 40 MG TABLET PO SCH ×2 (10:27→21:19)
[2020-02-08] MEDS: ASCORBIC ACID 500 MG TABLET PO SCH ×2 (10:27→21:19)
[2020-02-08] MEDS: ZINC SULFATE 220 MG CAPSULE PO SCH (10:27)
[2020-02-08] MEDS: CHOLECALCIFEROL 1,000 UNIT TABLET PO SCH (10:27)
[2020-02-08] MEDS: BENZONATATE 100 MG CAPSULE PO PRN (10:49)
[2020-02-08] MEDS: guaiFENesin/DM ER 600-30 MG TABLET PO PRN ×2 (10:49→21:19)
[2020-02-08] MEDS: BISACODYL 5 MG TABLET PO PRN (10:50)
[2020-02-08] MEDS: ZALEPLON 5 MG CAPSULE PO PRN (21:19)
[2020-02-08] MEDS: MELATONIN 3 MG TABLET PO PRN (21:19)
[2020-02-08] MEDS: ROSUVASTATIN 10 MG TABLET PO SCH (21:19)
[2020-02-09] MEDS: ALBUTEROL INHALER 18 GM INH SCH ×4 (00:02→19:07)
[2020-02-09 06:11] LABS: Basophils % 0.4 % (0.0-0.8); Eosinophils # 0.1 10*3/uL (0.0-0.87); Eosinophils % 0.6 % (0.00-10.9); Hematocrit 36.4 VOL% (35.7-47.0); Hemoglobin 11.8 GM/DL (12.0-16.0); Immature Granulocytes % 1.9 %; Immature Granulocytes Absolute 0.16 #; Lymphocytes # 1.2 10*3/uL (1.4-4.0); Lymphocytes % 14.4 % (21.3-54.2); Mean Corpuscular HGB Conc 32.4 GM/DL (32-36); Mean Corpuscular Volume 85.6 FL (87-102); Monocytes % 4.5 % (1.7-12.7); Neutrophils % 78.2 % (38.7-73.9); Platelet Count 268 T/CUMM (130-400); Red Blood Count 4.25 MC/CUMM (3.8-5.5); Red Cell Distribution Width 15.3 % (9.3-17.3); White Blood Count 8.4 T/CUMM (4-12)
[2020-02-09] MEDS: guaiFENesin/CODEINE 5 ML LIQUID PO PRN ×2 (06:18→21:13)
[2020-02-09 06:34] LABS: Albumin 2.2 G/DL (3.4-5.0); Bilirubin,Total 0.5 MG/DL (0.2-1.0); Calcium 9.3 MG/DL (8.5-10.1); Osmolality,Calculated 275.1 MOS/KG (273-304); Total Protein 7.3 G/DL (6.4-8.3)
[2020-02-09] MEDS: INSULIN REGULAR 100 UNIT/ML SUBCUT SCH ×4 (09:05→21:13)
[2020-02-09] MEDS: METOPROLOL TARTRATE 25 MG TABLET PO SCH ×2 (09:52→21:13)
[2020-02-09] MEDS: ENOXAPARIN 40 MG/0.4 ML SYRINGE SUBCUT SCH ×2 (09:52→21:13)
[2020-02-09] MEDS: DEXAMETHASONE 10 MG/1 ML VIAL IV SCH (09:52)
[2020-02-09] MEDS: SPIRONOLACTONE 25 MG TABLET PO SCH (09:52)
[2020-02-09] MEDS: FUROSEMIDE 20 MG TABLET PO SCH (09:52)
[2020-02-09] MEDS: INSULIN GLARGINE 100 UNIT/ML SUBCUT SCH ×2 (09:52→21:13)
[2020-02-09] MEDS: ASPIRIN EC 81 MG TABLET PO SCH (09:52)
[2020-02-09] MEDS: POLYETHYLENE GLYCOL POWDER 17 GM PACK PO SCH (09:53)
[2020-02-09] MEDS: PANTOPRAZOLE 40 MG TABLET PO SCH ×2 (09:53→21:13)
[2020-02-09] MEDS: BENZONATATE 100 MG CAPSULE PO PRN (09:53)
[2020-02-09] MEDS: CHOLECALCIFEROL 1,000 UNIT TABLET PO SCH (09:53)
[2020-02-09] MEDS: guaiFENesin/DM ER 600-30 MG TABLET PO PRN ×2 (09:53→21:13)
[2020-02-09] MEDS: ZINC SULFATE 220 MG CAPSULE PO SCH (09:53)
[2020-02-09] MEDS: ESCITALOPRAM 10 MG TABLET PO SCH (09:53)
[2020-02-09] MEDS: ASCORBIC ACID 500 MG TABLET PO SCH ×2 (09:53→21:13)
[2020-02-09] MEDS: GABAPENTIN 100 MG CAPSULE PO SCH ×3 (09:53→21:13)
[2020-02-09] MEDS: BISACODYL 5 MG TABLET PO PRN (09:54)
[2020-02-09] MEDS ORDERED: ALBUTEROL/IPRATROPIUM 3 ML NEB RESP TX PRN (12:24)
[2020-02-09] MEDS: ALBUTEROL/IPRATROPIUM 3 ML NEB RESP TX PRN ×2 (14:20→22:18)
[2020-02-09] MEDS: ZALEPLON 5 MG CAPSULE PO PRN (21:13)
[2020-02-09] MEDS: MELATONIN 3 MG TABLET PO PRN (21:13)
[2020-02-09] MEDS: MAGNESIUM HYDROXIDE SUSP 30 ML UDCUP PO PRN (21:13)
[2020-02-09] MEDS: ROSUVASTATIN 10 MG TABLET PO SCH (21:13)
[2020-02-10] MEDS: ALBUTEROL INHALER 18 GM INH SCH ×4 (00:18→19:09)
[2020-02-10] MEDS: ALBUTEROL/IPRATROPIUM 3 ML NEB RESP TX PRN ×2 (04:27→10:26)
[2020-02-10 05:01] LABS: Basophils % 0.2 % (0.0-0.8); Eosinophils % 0.2 % (0.00-10.9); Hematocrit 36.5 VOL% (35.7-47.0); Hemoglobin 11.9 GM/DL (12.0-16.0); Immature Granulocytes % 1.7 %; Immature Granulocytes Absolute 0.15 #; Lymphocytes # 1.2 10*3/uL (1.4-4.0); Lymphocytes % 14.2 % (21.3-54.2); Mean Corpuscular HGB Conc 32.6 GM/DL (32-36); Mean Corpuscular Volume 85.3 FL (87-102); Mean Platelet Volume 9.7 FL (9.6-12.0); Monocytes % 5.2 % (1.7-12.7); Neutrophils % 78.5 % (38.7-73.9); Platelet Count 295 T/CUMM (130-400); Red Blood Count 4.28 MC/CUMM (3.8-5.5); Red Cell Distribution Width 15.2 % (9.3-17.3); White Blood Count 8.6 T/CUMM (4-12)
[2020-02-10 05:23] LABS: Albumin 2.3 G/DL (3.4-5.0); Bilirubin,Total 0.7 MG/DL (0.2-1.0); Calcium 9.3 MG/DL (8.5-10.1); Osmolality,Calculated 274.2 MOS/KG (273-304); Total Protein 7.5 G/DL (6.4-8.3)
[2020-02-10] MEDS: SPIRONOLACTONE 25 MG TABLET PO SCH (08:18)
[2020-02-10] MEDS: ENOXAPARIN 40 MG/0.4 ML SYRINGE SUBCUT SCH ×2 (08:18→20:47)
[2020-02-10] MEDS: INSULIN GLARGINE 100 UNIT/ML SUBCUT SCH ×2 (08:19→20:47)
[2020-02-10] MEDS: ASCORBIC ACID 500 MG TABLET PO SCH ×2 (08:19→20:47)
[2020-02-10] MEDS: PANTOPRAZOLE 40 MG TABLET PO SCH ×2 (08:19→20:47)
[2020-02-10] MEDS: FUROSEMIDE 20 MG TABLET PO SCH (08:19)
[2020-02-10] MEDS: DEXAMETHASONE 10 MG/1 ML VIAL IV SCH (08:19)
[2020-02-10] MEDS: POLYETHYLENE GLYCOL POWDER 17 GM PACK PO SCH (08:19)
[2020-02-10] MEDS: METOPROLOL TARTRATE 25 MG TABLET PO SCH ×2 (08:19→20:47)
[2020-02-10] MEDS: ESCITALOPRAM 10 MG TABLET PO SCH (08:19)
[2020-02-10] MEDS: ASPIRIN EC 81 MG TABLET PO SCH (08:19)
[2020-02-10] MEDS: GABAPENTIN 100 MG CAPSULE PO SCH ×3 (08:19→20:47)
[2020-02-10] MEDS: CHOLECALCIFEROL 1,000 UNIT TABLET PO SCH (08:20)
[2020-02-10] MEDS: ZINC SULFATE 220 MG CAPSULE PO SCH (08:20)
[2020-02-10] MEDS: INSULIN REGULAR 100 UNIT/ML SUBCUT SCH ×4 (08:57→20:47)
[2020-02-10] MEDS ORDERED: MAGNESIUM CITRATE 300 ML BOTTLE PO PRN ×2 (10:18→10:33)
[2020-02-10] MEDS: ALBUTEROL/IPRATROPIUM 3 ML NEB RESP TX SCH (19:44)
[2020-02-10] MEDS: guaiFENesin/CODEINE 5 ML LIQUID PO PRN (20:47)
[2020-02-10] MEDS: ROSUVASTATIN 10 MG TABLET PO SCH (20:47)
[2020-02-10] MEDS: MELATONIN 3 MG TABLET PO PRN (20:47)
[2020-02-10] MEDS: ZALEPLON 5 MG CAPSULE PO PRN (20:47)
[2020-02-10] MEDS: guaiFENesin/DM ER 600-30 MG TABLET PO PRN (20:47)
[2020-02-11] MEDS: ALBUTEROL INHALER 18 GM INH SCH ×3 (00:15→12:25)
[2020-02-11] MEDS: ALBUTEROL/IPRATROPIUM 3 ML NEB RESP TX SCH (08:00)
[2020-02-11 09:22] LABS: Basophils # 0.1 10*3/uL (0.0-0.2); Basophils % 0.5 % (0.0-0.8); Eosinophils % 0.4 % (0.00-10.9); Hemoglobin 12.5 GM/DL (12.0-16.0); Immature Granulocytes % 2.2 %; Immature Granulocytes Absolute 0.23 #; Lymphocytes % 18.4 % (21.3-54.2); Mean Corpuscular HGB Conc 32.1 GM/DL (32-36); Mean Corpuscular Volume 86.5 FL (87-102); Mean Platelet Volume 9.7 FL (9.6-12.0); Monocytes % 4.6 % (1.7-12.7); Neutrophils % 73.9 % (38.7-73.9); Platelet Count 368 T/CUMM (130-400); Red Blood Count 4.51 MC/CUMM (3.8-5.5); Red Cell Distribution Width 15.2 % (9.3-17.3); White Blood Count 10.6 T/CUMM (4-12)
[2020-02-11 09:49] LABS: Calcium 9.2 MG/DL (8.5-10.1); Osmolality,Calculated 273.5 MOS/KG (273-304)
[2020-02-11] MEDS: INSULIN REGULAR 100 UNIT/ML SUBCUT SCH ×3 (10:08→17:18)
[2020-02-11] MEDS: ENOXAPARIN 40 MG/0.4 ML SYRINGE SUBCUT SCH (10:08)
[2020-02-11] MEDS: ESCITALOPRAM 10 MG TABLET PO SCH (10:09)
[2020-02-11] MEDS: INSULIN GLARGINE 100 UNIT/ML SUBCUT SCH (10:09)
[2020-02-11] MEDS: DEXAMETHASONE 10 MG/1 ML VIAL IV SCH (10:09)
[2020-02-11] MEDS: SPIRONOLACTONE 25 MG TABLET PO SCH (10:09)
[2020-02-11] MEDS: POLYETHYLENE GLYCOL POWDER 17 GM PACK PO SCH (10:09)
[2020-02-11] MEDS: ASPIRIN EC 81 MG TABLET PO SCH (10:09)
[2020-02-11] MEDS: METOPROLOL TARTRATE 25 MG TABLET PO SCH (10:09)
[2020-02-11] MEDS: FUROSEMIDE 20 MG TABLET PO SCH (10:09)
[2020-02-11] MEDS: ZINC SULFATE 220 MG CAPSULE PO SCH (10:10)
[2020-02-11] MEDS: PANTOPRAZOLE 40 MG TABLET PO SCH (10:10)
[2020-02-11] MEDS: CHOLECALCIFEROL 1,000 UNIT TABLET PO SCH (10:10)
[2020-02-11] MEDS: GABAPENTIN 100 MG CAPSULE PO SCH ×2 (10:10→15:01)
[2020-02-11] MEDS: BISACODYL 5 MG TABLET PO PRN (10:10)
[2020-02-11] MEDS: ASCORBIC ACID 500 MG TABLET PO SCH (10:10)
[2020-02-11] MEDS: BENZONATATE 100 MG CAPSULE PO PRN ×2 (10:11→15:16)
[2020-02-11] MEDS: guaiFENesin/DM ER 600-30 MG TABLET PO PRN (10:11)
[2020-02-11] MEDS ORDERED: PNEUMOCOCCAL VACCINE (23 VALENT) 0.5 ML VIAL IM ONE (15:30)
[2020-02-11 16:20] VITALS: BP 116/62
== END 2020-02-11 17:58 | DRG 177 ==
LOC: N.EDINP 04:08 → N.ED 04:08 → N.2E 10:23 → SUATTDRO 01-22 16:00
PROVIDERS: ADMIT Emergency Medicine; ATTEND Internal Medicine